=== PATIENT | male | born 1945 | race Caucasian/White ===

== ENCOUNTER → 2018-04-23 10:45 | Outpatient (CLI) | payer OTHER, MEDICARE, SELFPAY ==
--- NOTE | 2018-04-23 | DI.US.S_ITS ---
PROCEDURE: US ABD AORTA ANEURYSM SCREEN INDICATIONS: SCREENING FOR ABDOMINAL AORTIC ANEURYSM TECHNIQUE: Real time scanning was performed of the aorta and iliac arteries, with image documentation. COMPARISON: None. FINDINGS: Aorta: Proximal aortic diameter measures 2 cm. Mid-aorta measures 2 cm. Distal aortic diameter is 1.6 cm. Iliac arteries: Right common iliac artery measures 1.2 cm. Left common iliac artery measures 1 cm. IMPRESSION: Negative for aneurysm. Dictated by: Andrea Canseco M.D. on 04/23/2018 at 10:24 Approved by: Andrea Canseco M.D. on 04/23/2018 at 10:25
== END ==
PROVIDERS: PCP Family Medicine; Visit Provider Family Medicine
DX: Z13.6 Encounter for screening for cardiovascular disorders (principal)
CPT/HCPCS: 76706

== ENCOUNTER 2018-06-26 17:53 | Emergency (ER) | payer MEDICARE, SELFPAY ==
[2018-06-26 17:56] VITALS: BP 111/68; PULSE 65; RESP 15; TEMP 36.1; O2SAT 99; BMI 22.8
--- NOTE | 2018-06-26 18:09 | DI.CT.S_ITS ---
PROCEDURE: CT HEAD/BRAIN WO CON INDICATIONS: possible tia TECHNIQUE: Noncontrast 4.5 mm thick angled axial sections acquired from the foramen magnum to the vertex, with coronal and sagittal reformats. For radiation dose reduction, the following was used: automated exposure control, adjustment of mA and/or kV according to patient size. COMPARISON: None. FINDINGS: Image quality: Excellent. CSF spaces: Basal cisterns are patent. No extra-axial fluid collections. The ventricles are symmetric in size and shape. There is mild cerebral volume loss, with resultant ventricular and sulcal prominence. Brain: No intracranial hemorrhage, mass, or mass effect. There are subcortical, periventricular and deep white matter hypodensities consistent with mild chronic small vessel ischemic changes. There is intracranial internal carotid artery atherosclerosis. Skull and face: Calvarium and visualized facial bones appear intact, without suspicious lesions. Sinuses: Visualized sinuses and mastoids are clear. IMPRESSION: 1. No acute intracranial abnormality. 2. Mild chronic white matter small vessel ischemic changes and cerebral volume loss. Dictated by: Corby Menendez M.D. on 06/26/2018 at 18:36 Approved by: Corby Menendez M.D. on 06/26/2018 at 18:37
[2018-06-26 18:24] LABS: Bacteria Urine None Seen
[2018-06-26 18:30] VITALS: BP 122/62; PULSE 60; RESP 11; O2SAT 99
[2018-06-26 18:34] LABS: Culture Indicated Urine Cult Not Indicated; RBC Urine 0-1/HPF (0-5/HPF); Urine Amphetamines Negative (Negative); Urine Barbiturates Negative (Negative); Urine Benzodiazepines Negative (Negative); Urine Cocaine Negative (Negative); Urine MDMA Negative (Negative); Urine Methadone Negative (Negative); Urine Methamphetamines Negative (Negative); Urine Morphine/Opi cutoff 2000 Negative (Negative); Urine Oxycodone Negative (Negative); Urine Phencyclidine Negative (Negative); Urine Tetrahydrocannabinol Positive (Negative); Urine Tricyclic Antidepressant Negative (Negative); WBC Urine 0-1/HPF (0-5/HPF)
--- NOTE | 2018-06-26 18:48 | PC.NURSE ---
pt with hx of muscle dystrophy, unable to evaluated lower leg drift, limb ataxia.
--- NOTE | 2018-06-26 18:50 | ED.NEUROSD ---
HPI - Neuro Symptoms/Deficit General Chief Complaint: Neuro Symptoms/Deficit Stated Complaint: STATES TIA, SENT FOR CT SCAN Time Seen by Provider: 06/26/18 18:23 Source: patient and family Mode of arrival: ambulatory Limitations: no limitations History of Present Illness HPI Narrative: 72-year-old male, former smoker with complicated medical history presents at the request of his primary care provider for evaluation of a possible TIA. 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 He has had multiple thorough evaluations and as yet no etiology has been determined. He does have family members however with complicated migraines the present similarly. Patient states that yesterday afternoon he had difficulty operating his left hand and had an episode of difficulty expressing words. The symptoms lasted about 15 min and have long since resolved. He denies any recent injury, fever or chills. He denies chest pain, shortness of breath nor nausea, vomiting or diarrhea. Onset (ago): hour(s) Timing confirmed by: spouse Location: speech and left arm History of same: Yes Severity: mild Quality: weak and tingling Relieving factors: none Exacerbating factors: none Context: sudden onset On Anticoagulants: Yes (pradaxa) Associated symptoms: confusion Treatments Prior to Arrival: none Related Data Allergies Allergy/AdvReac Type Severity Reaction Status Date / Time No Known Drug Allergies Allergy Verified 06/26/18 17:56 Review of Systems Constitutional Denies chills, Denies fever(s), Denies lethargy and Reports weakness Eyes Denies change in vision, Denies eye discharge, Denies irritation and Denies loss of vision ENT Ears, Nose, Mouth, and Throat: Denies change in voice, Denies neck pain and Denies sore throat Cardiovascular Denies chest pain, Denies irregular heart rhythm, Denies lightheadedness, Denies palpitations, Denies dyspnea, Denies dyspnea on exertion and Denies orthopnea Respiratory Denies cough, Denies dyspnea, Denies dyspnea on exertion and Denies wheezing Gastrointestinal Gastrointestinal: Denies abdominal pain, Denies change in bowel habits, Denies diarrhea, Denies nausea and Denies vomiting Genitourinary Denies hematuria, Denies flank pain, Denies urinary incontinence and Denies urinary urgency Musculoskeletal Denies neck pain and Reports tingling Integumentary/Breasts Denies pruritus, Denies erythema, Denies rash and Denies wounds Neurologic Reports confusion, Denies loss of vision, Reports tingling and Reports weakness Psychiatric Denies anxiety, Reports confusion, Denies depression, Denies homicidal ideation and Denies suicidal ideation Endocrine Denies palpitations Hematologic/Lymphatic Denies easy bruising Allergic/Immunologic Denies wheezing [facility] Medical History Factor V Leiden (Acute) Migraine (Acute) Oculopharyngeal muscular dystrophy (Acute) TIA (transient ischemic attack) (Acute) Social History Smoking Status: Smoker, status unknown Social History Smoking Status: Smoker, status unknown Exam Narrative Exam Narrative: GENERAL: This is a well-nourished, well-developed patient, in mild distress. HEAD: Atraumatic. Normocephalic. No temporal or scalp tenderness. EYES: Pupils equal round and reactive. Extraocular motions intact. No scleral icterus. No injection or drainage. ENT: Nose without bleeding, purulent drainage or septal hematoma. Throat without erythema, tonsillar hypertrophy or exudate. Uvula midline. Airway patent. NECK: Trachea midline. No JVD or lymphadenopathy. Supple, nontender, no meningeal signs. CARDIOVASCULAR: Regular rate and rhythm without murmurs, gallops, or rubs. RESPIRATORY: Clear to auscultation. Breath sounds equal bilaterally. No wheezes, rales, or rhonchi. GASTROINTESTINAL: Abdomen soft, non-tender, nondistended. No hepato-splenomegaly, or palpable masses. No guarding. EXTREMITIES: No clubbing, cyanosis, or edema. No joint tenderness, effusion, or edema noted. BACK: Nontender without deformity or crepitance. No flank tenderness. NEURO: AOx3. SKIN: No rash or erythema. NIH Stroke Scale 1a. LOC: Patient is alert and keenly responsive (0) 1b. LOC Questions: Patient answers both LOC questions accurately (0) 1c. LOC Commands: Patient performs both tasks correctly (0) 2. Best Gaze: Normal (0) 3. Visual: No visual loss (0) 4. Facial palsy: Normal symmetrical movements (0) 5. Motor arm: No drift (0) 6. Motor leg: No drift (0) 7. Limb ataxia: Absent (0) 8. Sensory: Normal (0) 9. Best language: No aphasia; normal (0) 10. Dysarthria: Normal (0) 11. Extinction and inattention: No abnormality (0) NIHSS: 0 Initial Vital Signs Initial Vital Signs: Vital Signs Temperature 97.0 F L 06/26/18 17:56 Pulse Rate 65 06/26/18 17:56 Respiratory Rate 15 06/26/18 17:56 Blood Pressure 111/68 06/26/18 17:56 Pulse Oximetry 99 06/26/18 17:56 Scores ABCD2 Age >= 60 years: yes Initial BP. Either SBP >= 140 or DBP >= 90.: no Clinical features of the TIA: unilateral weakness Duration of symptoms: 10-59 minutes History of diabetes: no ABCD2 Score: 4 Course Orders Ordered: Discontinued Medications Sodium Chloride (Normal Saline 0.9%) 1,000 mls @ 150 mls/hr IV CONT KAYLYNN Last Admin: 06/26/18 18:56 Dose: 150 mls/hr Consultations Consultation #1: Discussion with [place] stroke neurologist. I relayed patient complaints and physical exam as well as CT and lab findings. She was able to access some records from a visit when he was sent to [place] for likely [place] filter placement in the setting of a PE. In discussing the case she stairs the opinion that the patient will require neurology evaluation but that nothing further needs to be done here in the emergency department such as CT angiogram or MRI. She sure the opinion that an alternative diagnosis such as atypical migraine or partial seizure given the lack of ischemic findings on multiple prior stroke evaluations. Vital Signs - 8 hr 06/26/18 17:56 06/26/18 18:30 06/26/18 19:02 Temperature 97.0 F L Pulse Rate 65 60 59 L Respiratory Rate 15 11 L 16 Blood Pressure 111/68 Blood Pressure [Left Arm] 122/62 130/65 Pulse Oximetry 99 99 95 MDM - Neuro Symptoms/Deficit Medical Records Attestation: I reviewed the patient's medical records. Lab Data Attestation: I reviewed the patient's lab results. Result diagrams: 06/26/18 18:43 06/26/18 18:43 Lab Results 06/26/18 06/26/18 06/26/18 Range/Units 18:20 18:20 18:43 WBC 6.6 (4.5-11.0) X10^3/uL RBC 4.78 (4.5-5.9) X10^6/uL Hgb 15.7 (13.5-17.5) g/dL Hct 46.8 (41-53) % MCV 97.8 (80-100) fL MCH 32.9 (26-34) PG MCHC 33.6 (30-36) % RDW 12.8 (11.6-14.8) % Plt Count 170 (150-400) X10^3/uL Neut % (Auto) 68.5 (50-75) % Lymph % (Auto) 19.4 L (25-40) % Hale % (Auto) 9.3 (3-14) % Eos % (Auto) 1.8 L (2-4) % Baso % (Auto) 1.0 (0-2) % Neut # (Auto) 4500 (2289-0604) /uL Lymph # (Auto) 1300 (8794-8633) /uL Hale # (Auto) 600 (0-900) /uL Eos # (Auto) 100 (0-450) /uL Baso # (Auto) 100 (0-100) /uL PT (10.1-12.7) SECONDS INR (0.9-1.3) APTT (26.4-36.2) SECONDS Sodium (137-145) mmol/L Potassium (3.4-5.1) mmol/L Chloride (98-107) mmol/L Carbon Dioxide (22-32) mmol/L BUN (9-20) mg/dL Creatinine (0.66-1.25) mg/dL Estimated GFR (>60) mL/min BUN/Creatinine Ratio (6-22) Glucose (80-110) mg/dL Calcium (8.4-10.2) mg/dL Urine Color Cancelled Urine Appearance Cancelled Urine pH Cancelled Ur Specific [place] Cancelled Urine Protein Cancelled Urine Glucose (UA) Cancelled Urine Ketones Cancelled Urine Occult Blood Cancelled Urine Nitrate Cancelled Urine Bilirubin Cancelled Urine Urobilinogen Cancelled Ur Leukocyte Esterase Cancelled Urine RBC 0-1/hpf (0-5/HPF) Urine WBC 0-1/hpf (0-5/HPF) Urine Bacteria None seen (None) Ur Culture Indicated? Cult not indicated Urine Opiates Screen Negative (Negative) Ur Oxycodone Screen Negative (Negative) Urine Methadone Screen Negative (Negative) Ur Barbiturates Screen Negative (Negative) U Tricyclic Antidepress Negative (Negative) Ur Phencyclidine Scrn Negative (Negative) Ur Amphetamines Screen Negative (Negative) U Methamphetamines Scrn Negative (Negative) Ur MDMA Scrn (Ecstasy) Negative (Negative) U Benzodiazepines Scrn Negative (Negative) Urine Cocaine Screen Negative (Negative) U Marijuana (THC) Screen Positive H (Negative) 06/26/18 06/26/18 Range/Units 18:43 18:43 WBC (4.5-11.0) X10^3/uL RBC (4.5-5.9) X10^6/uL Hgb (13.5-17.5) g/dL Hct (41-53) % MCV (80-100) fL MCH (26-34) PG MCHC (30-36) % RDW (11.6-14.8) % Plt Count (150-400) X10^3/uL Neut % (Auto) (50-75) % Lymph % (Auto) (25-40) % Hale % (Auto) (3-14) % Eos % (Auto) (2-4) % Baso % (Auto) (0-2) % Neut # (Auto) (5982-0004) /uL Lymph # (Auto) (0597-2670) /uL Hale # (Auto) (0-900) /uL Eos # (Auto) (0-450) /uL Baso # (Auto) (0-100) /uL PT 12.5 (10.1-12.7) SECONDS INR 1.1 (0.9-1.3) APTT 38 H (26.4-36.2) SECONDS Sodium 140 (137-145) mmol/L Potassium 4.6 (3.4-5.1) mmol/L Chloride 104 (98-107) mmol/L Carbon Dioxide 26 (22-32) mmol/L BUN 10 (9-20) mg/dL Creatinine 0.50 L (0.66-1.25) mg/dL Estimated GFR > 60.0 (>60) mL/min BUN/Creatinine Ratio 20.0 (6-22) Glucose 127 H (80-110) mg/dL Calcium 9.0 (8.4-10.2) mg/dL Urine Color Urine Appearance Urine pH Ur Specific [place] Urine Protein Urine Glucose (UA) Urine Ketones Urine Occult Blood Urine Nitrate Urine Bilirubin Urine Urobilinogen Ur Leukocyte Esterase Urine RBC (0-5/HPF) Urine WBC (0-5/HPF) Urine Bacteria (None) Ur Culture Indicated? Urine Opiates Screen (Negative) Ur Oxycodone Screen (Negative) Urine Methadone Screen (Negative) Ur Barbiturates Screen (Negative) U Tricyclic Antidepress (Negative) Ur Phencyclidine Scrn (Negative) Ur Amphetamines Screen (Negative) U Methamphetamines Scrn (Negative) Ur MDMA Scrn (Ecstasy) (Negative) U Benzodiazepines Scrn (Negative) Urine Cocaine Screen (Negative) U Marijuana (THC) Screen (Negative) Urine Dip Bedside Urine Glucose Negative Bedside Urine Bilirubin - Negative Bedside Urine Ketone - Negative Urine Specific Amory 1.020 Bedside Urine Occult Blood - Negative Bedside Urine pH 6.0 Bedside Urine Protein +/- 15 Bedside Urine Urobilinogen - Negative Bedside Urine Nitrite - Negative Bedside Urine Leukocytes - Negative Esterase Imaging Data CT scan - head: Radiologist's impression: [place] [id number] CT Scan Report Signed Patient: Javi Ventura TMR#: [id number] : [id number]:[id number] Age/Sex: 72 / MDate of Service: 06/26/18 Loc: ED Accession Number: [id number] Procedure: CT head/brain wo con Ordering Provider: Stephen Alexander D.O. PROCEDURE: CT HEAD/BRAIN WO CON INDICATIONS: possible tia TECHNIQUE: Noncontrast 4.5 mm thick angled axial sections acquired from the foramen magnum to the vertex, with coronal and sagittal reformats. For radiation dose reduction, the following was used: automated exposure control, adjustment of mA and/or kV according to patient size. COMPARISON: None. FINDINGS: Image quality: Excellent. CSF spaces: Basal cisterns are patent. No extra-axial fluid collections. The ventricles are symmetric in size and shape. There is mild cerebral volume loss, with resultant ventricular and sulcal prominence. Brain: No intracranial hemorrhage, mass, or mass effect. There are subcortical, periventricular and deep white matter hypodensities consistent with mild chronic small vessel ischemic changes. There is intracranial internal carotid artery atherosclerosis. Skull and face: Calvarium and visualized facial bones appear intact, without suspicious lesions. Sinuses: Visualized sinuses and mastoids are clear. IMPRESSION: 1. No acute intracranial abnormality. 2. Mild chronic white matter small vessel ischemic changes and cerebral volume loss. Dictated by: Corby Menendez M.D. on 06/26/2018 at 18:36 Approved by: Corby Menendez M.D. on 06/26/2018 at 18:37 [facility] Narrative Medical decision making narrative: Multiple etiologies for patient's symptoms considered including: [Stroke versus TIA versus atypical migraine versus partial seizures] Patient's symptoms improved or duration of stay with above-stated therapies. Findings and discharge diagnosis discussed with patient/family followed by verbalization of understanding Return precautions discussed with patient/family whom verbalize understanding. Discharge Plan Departure Patient Disposition: Home Clinical Impression: Brain TIA Discharge Date/Time: 06/26/18 20:08 Interventions: ED Discharge Assessment Last Done: 06/26/18 20:09 Instructions: DI for Transient Ischemic Attack Activity Restrictions/Additional Instructions: *You have been diagnosed with [ improved neurologic symptoms ] *What to do: *Continue to take medications as directed *Follow up with your primary care provider in 2-3 days, call for an appointment. Let them know you were seen in the Emergency Department and that we ask that you be seen in follow up *Return to ER if you should have any new, worsening or concerning symptoms *[facility] [phone]
[2018-06-26] MEDS: SODIUM CHLORIDE 0.9% 1,000 ML 150 ML IV (18:56)
[2018-06-26 19:02] VITALS: BP 130/65; PULSE 59; RESP 16; O2SAT 95
[2018-06-26 19:03] LABS: Add Manual Diff / Slide Review NO; Basophils Absolute Auto 100 /uL (0-100); Eosinophils Absolute Auto 100 /uL (0-450); Eosinophils Percent Auto 1.8 % (2-4); Hematocrit 46.8 % (41-53); Hemoglobin 15.7 g/dL (13.5-17.5); Lymphocytes Absolute Auto 1300 /uL (1100-4500); Lymphocytes Percent Auto 19.4 % (25-40); Mean Corpuscular HGB Conc 33.6 % (30-36); Mean Corpuscular Hemoglobin 32.9 PG (26-34); Mean Corpuscular Volume 97.8 fL (80-100); Monocytes Absolute Auto 600 /uL (0-900); Monocytes Percent Auto 9.3 % (3-14); Neutrophils Absolute Auto 4500 /uL (1500-7000); Neutrophils Percent Auto 68.5 % (50-75); Platelet Count 170 X10^3/uL (150-400); Red Blood Cell Count 4.78 X10^6/uL (4.5-5.9); Red Cell Distribution Width 12.8 % (11.6-14.8); White Blood Cell Count 6.6 X10^3/uL (4.5-11.0)
[2018-06-26 19:05] LABS: Blood Urea Nitrogen 10 mg/dL (9-20); Carbon Dioxide 26 mmol/L (22-32); Chloride 104 mmol/L (98-107); Estimated Glomerular Filt Rate > 60.0 mL/min (>60); Glucose 127 mg/dL (80-110); Potassium 4.6 mmol/L (3.4-5.1); Sodium 140 mmol/L (137-145)
[2018-06-26 19:07] LABS: HEMOLYSIS 65 (0-50)
[2018-06-26 19:08] LABS: INR 1.1 (0.9-1.3); Prothrombin Time 12.5 SECONDS (10.1-12.7)
[2018-06-26 19:10] LABS: PTT Partial Thromboplastin Tim 38 SECONDS (26.4-36.2)
--- NOTE | 2018-06-26 19:25 | ED_ITS ---
HPI - Neuro Symptoms/Deficit General Chief Complaint: Neuro Symptoms/Deficit Stated Complaint: STATES TIA, SENT FOR CT SCAN Time Seen by Provider: 06/26/18 18:23 Source: patient and family Mode of arrival: ambulatory Limitations: no limitations History of Present Illness HPI Narrative: 72-year-old male, former smoker with complicated medical history presents at the request of his primary care provider for evaluation of a possible TIA. 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 He has had multiple thorough evaluations and as yet no etiology has been determined. He does have family members however with complicated migraines the present similarly. Patient states that yesterday afternoon he had difficulty operating his left hand and had an episode of difficulty expressing words. The symptoms lasted about 15 min and have long since resolved. He denies any recent injury, fever or chills. He denies chest pain, shortness of breath nor nausea, vomiting or diarrhea. Onset (ago): hour(s) Timing confirmed by: spouse Location: speech and left arm History of same: Yes Severity: mild Quality: weak and tingling Relieving factors: none Exacerbating factors: none Context: sudden onset On Anticoagulants: Yes (pradaxa) Associated symptoms: confusion Treatments Prior to Arrival: none Related Data Allergies Allergy/AdvReac Type Severity Reaction Status Date / Time No Known Drug Allergies Allergy Verified 06/26/18 17:56 Review of Systems Constitutional Denies chills, Denies fever(s), Denies lethargy and Reports weakness Eyes Denies change in vision, Denies eye discharge, Denies irritation and Denies loss of vision ENT Ears, Nose, Mouth, and Throat: Denies change in voice, Denies neck pain and Denies sore throat Cardiovascular Denies chest pain, Denies irregular heart rhythm, Denies lightheadedness, Denies palpitations, Denies dyspnea, Denies dyspnea on exertion and Denies orthopnea Respiratory Denies cough, Denies dyspnea, Denies dyspnea on exertion and Denies wheezing Gastrointestinal Gastrointestinal: Denies abdominal pain, Denies change in bowel habits, Denies diarrhea, Denies nausea and Denies vomiting Genitourinary Denies hematuria, Denies flank pain, Denies urinary incontinence and Denies urinary urgency Musculoskeletal Denies neck pain and Reports tingling Integumentary/Breasts Denies pruritus, Denies erythema, Denies rash and Denies wounds Neurologic Reports confusion, Denies loss of vision, Reports tingling and Reports weakness Psychiatric Denies anxiety, Reports confusion, Denies depression, Denies homicidal ideation and Denies suicidal ideation Endocrine Denies palpitations Hematologic/Lymphatic Denies easy bruising Allergic/Immunologic Denies wheezing [facility] Medical History Factor V Leiden (Acute) Migraine (Acute) Oculopharyngeal muscular dystrophy (Acute) TIA (transient ischemic attack) (Acute) Social History Smoking Status: Smoker, status unknown Social History Smoking Status: Smoker, status unknown Exam Narrative Exam Narrative: GENERAL: This is a well-nourished, well-developed patient, in mild distress. HEAD: Atraumatic. Normocephalic. No temporal or scalp tenderness. EYES: Pupils equal round and reactive. Extraocular motions intact. No scleral icterus. No injection or drainage. ENT: Nose without bleeding, purulent drainage or septal hematoma. Throat without erythema, tonsillar hypertrophy or exudate. Uvula midline. Airway patent. NECK: Trachea midline. No JVD or lymphadenopathy. Supple, nontender, no meningeal signs. CARDIOVASCULAR: Regular rate and rhythm without murmurs, gallops, or rubs. RESPIRATORY: Clear to auscultation. Breath sounds equal bilaterally. No wheezes , rales, or rhonchi. GASTROINTESTINAL: Abdomen soft, non-tender, nondistended. No hepato-splenomegaly , or palpable masses. No guarding. EXTREMITIES: No clubbing, cyanosis, or edema. No joint tenderness, effusion, or edema noted. BACK: Nontender without deformity or crepitance. No flank tenderness. NEURO: AOx3. SKIN: No rash or erythema. NIH Stroke Scale 1a. LOC: Patient is alert and keenly responsive (0) 1b. LOC Questions: Patient answers both LOC questions accurately (0) 1c. LOC Commands: Patient performs both tasks correctly (0) 2. Best Gaze: Normal (0) 3. Visual: No visual loss (0) 4. Facial palsy: Normal symmetrical movements (0) 5. Motor arm: No drift (0) 6. Motor leg: No drift (0) 7. Limb ataxia: Absent (0) 8. Sensory: Normal (0) 9. Best language: No aphasia; normal (0) 10. Dysarthria: Normal (0) 11. Extinction and inattention: No abnormality (0) NIHSS: 0 Initial Vital Signs Initial Vital Signs: Vital Signs Temperature 97.0 F L 06/26/18 17:56 Pulse Rate 65 06/26/18 17:56 Respiratory Rate 15 06/26/18 17:56 Blood Pressure 111/68 06/26/18 17:56 Pulse Oximetry 99 06/26/18 17:56 Scores ABCD2 Age >= 60 years: yes Initial BP. Either SBP >= 140 or DBP >= 90.: no Clinical features of the TIA: unilateral weakness Duration of symptoms: 10-59 minutes History of diabetes: no ABCD2 Score: 4 Course Orders Ordered: Discontinued Medications Sodium Chloride (Normal Saline 0.9%) 1,000 mls @ 150 mls/hr IV CONT KAYLYNN Last Admin: 06/26/18 18:56 Dose: 150 mls/hr Consultations Consultation #1: Discussion with [place] stroke neurologist. I relayed patient complaints and physical exam as well as CT and lab findings. She was able to access some records from a visit when he was sent to [place] for likely Khurram filter placement in the setting of a PE. In discussing the case she stairs the opinion that the patient will require neurology evaluation but that nothing further needs to be done here in the emergency department such as CT angiogram or MRI. She sure the opinion that an alternative diagnosis such as atypical migraine or partial seizure given the lack of ischemic findings on multiple prior stroke evaluations. Vital Signs - 8 hr 06/26/18 17:56 06/26/18 18:30 06/26/18 19:02 Temperature 97.0 F L Pulse Rate 65 60 59 L Respiratory Rate 15 11 L 16 Blood Pressure 111/68 Blood Pressure [Left Arm] 122/62 130/65 Pulse Oximetry 99 99 95 MDM - Neuro Symptoms/Deficit Medical Records Attestation: I reviewed the patient's medical records. Lab Data Attestation: I reviewed the patient's lab results. Result diagrams: 06/26/18 18:43 06/26/18 18:43 Lab Results 06/26/18 06/26/18 06/26/18 Range/Units 18:20 18:20 18:43 WBC 6.6 (4.5-11.0) X10^3/uL RBC 4.78 (4.5-5.9) X10^6/uL Hgb 15.7 (13.5-17.5) g/dL Hct 46.8 (41-53) % MCV 97.8 (80-100) fL MCH 32.9 (26-34) PG MCHC 33.6 (30-36) % RDW 12.8 (11.6-14.8) % Plt Count 170 (150-400) X10^3/uL Neut % (Auto) 68.5 (50-75) % Lymph % (Auto) 19.4 L (25-40) % [place] % (Auto) 9.3 (3-14) % Eos % (Auto) 1.8 L (2-4) % Baso % (Auto) 1.0 (0-2) % Neut # (Auto) 4500 (1543-5713) /uL Lymph # (Auto) 1300 (3375-0896) /uL [place] # (Auto) 600 (0-900) /uL Eos # (Auto) 100 (0-450) /uL Baso # (Auto) 100 (0-100) /uL PT (10.1-12.7) SECONDS INR (0.9-1.3) APTT (26.4-36.2) SECONDS Sodium (137-145) mmol/L Potassium (3.4-5.1) mmol/L Chloride (98-107) mmol/L Carbon Dioxide (22-32) mmol/L BUN (9-20) mg/dL Creatinine (0.66-1.25) mg/dL Estimated GFR (>60) mL/min BUN/Creatinine Ratio (6-22) Glucose (80-110) mg/dL Calcium (8.4-10.2) mg/dL Urine Color Cancelled Urine Appearance Cancelled Urine pH Cancelled Ur Specific [place] Cancelled Urine Protein Cancelled Urine Glucose (UA) Cancelled Urine Ketones Cancelled Urine Occult Blood Cancelled Urine Nitrate Cancelled Urine Bilirubin Cancelled Urine Urobilinogen Cancelled Ur Leukocyte Esterase Cancelled Urine RBC 0-1/hpf (0-5/HPF) Urine WBC 0-1/hpf (0-5/HPF) Urine Bacteria None seen (None) Ur Culture Indicated? Cult not indicated Urine Opiates Screen Negative (Negative) Ur Oxycodone Screen Negative (Negative) Urine Methadone Screen Negative (Negative) Ur Barbiturates Screen Negative (Negative) U Tricyclic Antidepress Negative (Negative) Ur Phencyclidine Scrn Negative (Negative) Ur Amphetamines Screen Negative (Negative) U Methamphetamines Scrn Negative (Negative) Ur MDMA Scrn (Ecstasy) Negative (Negative) U Benzodiazepines Scrn Negative (Negative) Urine Cocaine Screen Negative (Negative) U Marijuana (THC) Screen Positive H (Negative) 06/26/18 06/26/18 Range/Units 18:43 18:43 WBC (4.5-11.0) X10^3/uL RBC (4.5-5.9) X10^6/uL Hgb (13.5-17.5) g/dL Hct (41-53) % MCV (80-100) fL MCH (26-34) PG MCHC (30-36) % RDW (11.6-14.8) % Plt Count (150-400) X10^3/uL Neut % (Auto) (50-75) % Lymph % (Auto) (25-40) % [place] % (Auto) (3-14) % Eos % (Auto) (2-4) % Baso % (Auto) (0-2) % Neut # (Auto) (0953-5222) /uL Lymph # (Auto) (7044-6060) /uL [place] # (Auto) (0-900) /uL Eos # (Auto) (0-450) /uL Baso # (Auto) (0-100) /uL PT 12.5 (10.1-12.7) SECONDS INR 1.1 (0.9-1.3) APTT 38 H (26.4-36.2) SECONDS Sodium 140 (137-145) mmol/L Potassium 4.6 (3.4-5.1) mmol/L Chloride 104 (98-107) mmol/L Carbon Dioxide 26 (22-32) mmol/L BUN 10 (9-20) mg/dL Creatinine 0.50 L (0.66-1.25) mg/dL Estimated GFR > 60.0 (>60) mL/min BUN/Creatinine Ratio 20.0 (6-22) Glucose 127 H (80-110) mg/dL Calcium 9.0 (8.4-10.2) mg/dL Urine Color Urine Appearance Urine pH Ur Specific [place] Urine Protein Urine Glucose (UA) Urine Ketones Urine Occult Blood Urine Nitrate Urine Bilirubin Urine Urobilinogen Ur Leukocyte Esterase Urine RBC (0-5/HPF) Urine WBC (0-5/HPF) Urine Bacteria (None) Ur Culture Indicated? Urine Opiates Screen (Negative) Ur Oxycodone Screen (Negative) Urine Methadone Screen (Negative) Ur Barbiturates Screen (Negative) U Tricyclic Antidepress (Negative) Ur Phencyclidine Scrn (Negative) Ur Amphetamines Screen (Negative) U Methamphetamines Scrn (Negative) Ur MDMA Scrn (Ecstasy) (Negative) U Benzodiazepines Scrn (Negative) Urine Cocaine Screen (Negative) U Marijuana (THC) Screen (Negative) Urine Dip Bedside Urine Glucose Negative Bedside Urine Bilirubin - Negative Bedside Urine Ketone - Negative Urine Specific [place] 1.020 Bedside Urine Occult Blood - Negative Bedside Urine pH 6.0 Bedside Urine Protein +/- 15 Bedside Urine Urobilinogen - Negative Bedside Urine Nitrite - Negative Bedside Urine Leukocytes - Negative Esterase Imaging Data CT scan - head: Radiologist's impression: [place] [address] CT Scan Report Signed Patient: Javi Ventura TMR#: [id number] : 1945cct:[id number] Age/Sex: 72 / MDate of Service: 06/26/18 Loc: ED Accession Number: [id number] Procedure: CT head/brain wo con Ordering Provider: Stephen Alexander D.O. PROCEDURE: CT HEAD/BRAIN WO CON INDICATIONS: possible tia TECHNIQUE: Noncontrast 4.5 mm thick angled axial sections acquired from the foramen magnum to the vertex, with coronal and sagittal reformats. For radiation dose reduction, the following was used: automated exposure control, adjustment of mA and/or kV according to patient size. COMPARISON: None. FINDINGS: Image quality: Excellent. CSF spaces: Basal cisterns are patent. No extra-axial fluid collections. The ventricles are symmetric in size and shape. There is mild cerebral volume loss , with resultant ventricular and sulcal prominence. Brain: No intracranial hemorrhage, mass, or mass effect. There are subcortical , periventricular and deep white matter hypodensities consistent with mild chronic small vessel ischemic changes. There is intracranial internal carotid artery atherosclerosis. Skull and face: Calvarium and visualized facial bones appear intact, without suspicious lesions. Sinuses: Visualized sinuses and mastoids are clear. IMPRESSION: 1. No acute intracranial abnormality. 2. Mild chronic white matter small vessel ischemic changes and cerebral volume loss. Dictated by: Corby Menendez M.D. on 06/26/2018 at 18:36 Approved by: Corby Menendez M.D. on 06/26/2018 at 18:37 [facility] Narrative Medical decision making narrative: Multiple etiologies for patient's symptoms considered including: [Stroke versus TIA versus atypical migraine versus partial seizures] Patient's symptoms improved or duration of stay with above-stated therapies. Findings and discharge diagnosis discussed with patient/family followed by verbalization of understanding Return precautions discussed with patient/family whom verbalize understanding. Discharge Plan Departure Patient Disposition: Home Clinical Impression: Brain TIA Discharge Date/Time: 06/26/18 20:08 Interventions: ED Discharge Assessment Last Done: 06/26/18 20:09 Instructions: DI for Transient Ischemic Attack Activity Restrictions/Additional Instructions: *You have been diagnosed with [ improved neurologic symptoms ] *What to do: *Continue to take medications as directed *Follow up with your primary care provider in 2-3 days, call for an appointment. Let them know you were seen in the Emergency Department and that we ask that you be seen in follow up *Return to ER if you should have any new, worsening or concerning symptoms *[facility] [phone]
[2018-06-26 19:30] VITALS: BP 128/70; PULSE 56; RESP 15; O2SAT 95
--- NOTE | 2018-08-16 11:21 | PC.NURSE ---
late entry: completed NS 1000ml bolus iv at 06/26/18 1930.
== END 2018-06-26 20:08 | disposition home or self-care (01) ==
PROVIDERS: Emergency Provider Emergency Medicine; PCP Family Medicine
DX: G45.9 Transient cerebral ischemic attack, unspecified (principal)
CPT/HCPCS: 36591; 70450; 80048; 80305; 81003; 81015; 85025; 85610; 85730; 93005; 96360; 99283; 99285

== ENCOUNTER → 2020-09-08 08:20 | Outpatient (CLI) | payer MEDICARE, SELFPAY ==
[2020-09-08 19:27] LABS: Add Manual Diff / Slide Review NO; Basophils Absolute Auto 0 /uL (0-100); Basophils Percent Auto 0.3 % (0-2); Eosinophils Absolute Auto 200 /uL (0-450); Eosinophils Percent Auto 3.5 % (2-4); Hematocrit 47.3 % (41-53); Hemoglobin 15.7 g/dL (13.5-17.5); Lymphocytes Absolute Auto 900 /uL (1100-4500); Lymphocytes Percent Auto 18.6 % (25-40); Mean Corpuscular HGB Conc 33.1 % (30-36); Mean Corpuscular Hemoglobin 32.5 PG (26-34); Mean Corpuscular Volume 98.2 fL (80-100); Monocytes Absolute Auto 400 /uL (0-900); Monocytes Percent Auto 7.9 % (3-14); Neutrophils Absolute Auto 3200 /uL (1500-7000); Neutrophils Percent Auto 69.7 % (50-75); Platelet Count 167 X10^3/uL (150-400); Red Blood Cell Count 4.81 X10^6/uL (4.5-5.9); Red Cell Distribution Width 13.7 % (11.6-14.8); White Blood Cell Count 4.6 X10^3/uL (4.5-11.0)
[2020-09-08 19:44] LABS: Alanine Aminotransferase 36 IU/L (<50); Albumin 3.9 g/dL (3.5-5.0); Albumin Globulin Ratio 1.1 (1.0-2.8); Alkaline Phosphatase 62 U/L (38-126); Aspartate Aminotransferase 116 IU/L (17-59); BUN Creatinine Ratio 28.3 (6-22); Bilirubin Total 0.5 mg/dL (0.2-1.3); Blood Urea Nitrogen 17 mg/dL (9-20); Calcium 9.2 mg/dL (8.4-10.2); Carbon Dioxide 31 mmol/L (22-32); Chloride 103 mmol/L (98-107); Cholesterol 210 mg/dL (140-199); Estimated Glomerular Filt Rate > 60.0 mL/min (>60); Globulin 3.4 g/dL (1.7-4.1); Glucose 100 mg/dL (80-110); HDL Cholesterol 49 mg/dL (40-60); HEMOLYSIS 17 (0-50); LDL Cholesterol Calculated 149 mg/dL (<100); Potassium 4.3 mmol/L (3.4-5.1); Sodium 138 mmol/L (137-145); Total Protein 7.3 g/dL (6.3-8.2); Triglycerides 61 mg/dL (35-150)
[2020-09-08 20:13] LABS: Prostate Specific Antigen Scrn 2.33 ng/mL (0.1-4.0)
[2020-09-18 16:07] LABS: Percent Free Testosterone 3.81 % (1.50-4.20); Testosterone Free 34.08 ng/dL (5.00-21.00); Testosterone Total 894.6 ng/dL (264.0-916.0)
== END ==
PROVIDERS: PCP Physician Assistant; Visit Provider Physician Assistant
DX: E29.1 Testicular hypofunction (principal); G71.09 Other specified muscular dystrophies; I26.99 Other pulmonary embolism without acute cor pulmonale; I82.409 Acute embolism and thrombosis of unspecified deep veins of unspecified lower extremity; Z12.5 Encounter for screening for malignant neoplasm of prostate
CPT/HCPCS: 80053; 80061; 84402; 84403; 85025; G0103

== ENCOUNTER → 2020-12-23 11:57 | Outpatient (CLI) | payer MEDICARE, SELFPAY ==
[2020-12-23 20:13] LABS: COVID19 - ORCAS (NP or Nasal) Negative (Negative)
== END ==
PROVIDERS: PCP Physician Assistant; Visit Provider Physician Assistant
DX: Z01.812 Encounter for preprocedural laboratory examination (principal); Z20.822 Contact with and (suspected) exposure to COVID-19
CPT/HCPCS: U0003

== ENCOUNTER → 2021-02-22 10:01 | Outpatient (CLI) | payer MEDICARE, SELFPAY ==
[2021-02-22 19:57] LABS: Cholesterol 262 mg/dL (140-199); HDL Cholesterol 68 mg/dL (40-60); LDL Cholesterol Calculated 174 mg/dL (<100); Triglycerides 102 mg/dL (35-150)
[2021-03-05 07:28] LABS: Percent Free Testosterone 2.87 % (1.50-4.20); Testosterone Free 22.56 ng/dL (5.00-21.00); Testosterone Total 786.1 ng/dL (264.0-916.0)
== END ==
PROVIDERS: PCP Physician Assistant; Visit Provider Physician Assistant
DX: E29.1 Testicular hypofunction (principal); E78.00 Pure hypercholesterolemia, unspecified; Z79.890 Hormone replacement therapy
CPT/HCPCS: 80061; 84402; 84403

== ENCOUNTER → 2021-06-22 08:27 | Outpatient (CLI) | payer MEDICARE, SELFPAY ==
[2021-06-22 19:25] LABS: Cholesterol 252 mg/dL (140-199); HDL Cholesterol 62 mg/dL (40-60); LDL Cholesterol Calculated 173 mg/dL (<100); Triglycerides 85 mg/dL (35-150)
[2021-06-26 15:42] LABS: Testosterone % Fr + Wkly bound 11.6 % (9.0-46.0); Testosterone Fr+Wkly bound 41.1 ng/dL (40.0-250.0); Testosterone, Total 354.6 ng/dL (264.0-916.0)
== END ==
PROVIDERS: PCP Physician Assistant; Visit Provider Physician Assistant
DX: E29.1 Testicular hypofunction (principal); Z79.890 Hormone replacement therapy
CPT/HCPCS: 80061; 84403

== ENCOUNTER → 2021-10-11 08:30 | Outpatient (CLI) | payer MEDICARE, SELFPAY ==
[2021-10-11 19:32] LABS: Alanine Aminotransferase 48 IU/L (<50); Albumin 4.4 g/dL (3.5-5.0); Albumin Globulin Ratio 1.3 (1.0-2.8); Alkaline Phosphatase 69 U/L (38-126); Aspartate Aminotransferase 55 IU/L (17-59); BUN Creatinine Ratio 28.1 (6-22); Bilirubin Total 0.4 mg/dL (0.2-1.3); Blood Urea Nitrogen 16 mg/dL (9-20); Calcium 9.3 mg/dL (8.4-10.2); Carbon Dioxide 26 mmol/L (22-32); Chloride 106 mmol/L (98-107); Cholesterol 278 mg/dL (140-199); Estimated Glomerular Filt Rate > 60 mL/min (>60); Globulin 3.3 g/dL (1.7-4.1); Glucose 101 mg/dL (80-110); HDL Cholesterol 71 mg/dL (40-60); HEMOLYSIS < 15 (0-50); LDL Cholesterol Calculated 191 mg/dL (<100); Potassium 4.2 mmol/L (3.4-5.1); Sodium 140 mmol/L (137-145); Total Protein 7.7 g/dL (6.3-8.2); Triglycerides 79 mg/dL (35-150)
[2021-10-11 20:00] LABS: Prostate Specific Antigen Scrn 2.27 ng/mL (0.1-4.0)
[2021-10-18 08:18] LABS: Testosterone % Fr + Wkly bound 6.3 % (9.0-46.0); Testosterone Fr+Wkly bound 23.6 ng/dL (40.0-250.0); Testosterone, Total 375.3 ng/dL (264.0-916.0)
== END ==
PROVIDERS: PCP Physician Assistant; Visit Provider Physician Assistant
DX: Z12.5 Encounter for screening for malignant neoplasm of prostate (principal); E78.00 Pure hypercholesterolemia, unspecified; Z79.899 Other long term (current) drug therapy; E29.1 Testicular hypofunction; Z79.890 Hormone replacement therapy
CPT/HCPCS: 80053; 80061; 84403; G0103

== ENCOUNTER → 2022-06-02 12:55 | Outpatient (CLI) | payer MEDICARE, SELFPAY ==
--- NOTE | 2022-06-02 12:57 | DI.RAD.S_ITS ---
PROCEDURE: FL BARIUM SWALLOW INDICATIONS: Dysphagia, pharyngeal phase COMPARISON: None. FINDINGS: Function: There is abnormal esophageal peristalsis with several episodes tertiary contractions resulting in delayed and retrograde flow ingested contrast. There also appears to be occasional episodes of esophageal dysmotility resulting in stasis ingested oral contrast requiring multiple attempts to clear oral contrast. No elicited gastroesophageal reflux. There is normal transit of a calibrated barium tablet through the esophagus into the stomach. Morphology: Air-contrast images demonstrate unremarkable mucosal morphology. Single contrast views show no esophageal strictures, extrinsic mass effects, or diverticula. Limited images of the stomach demonstrate normal appearance. IMPRESSION: Abnormal esophageal peristalsis with several episodes of tertiary contractions as well as multiple episodes of esophageal dysmotility. Mild distal esophageal narrowing appeared transient with no difficulties passing calibrated barium tablet. Dictated by: Emil Varela M.D. on 06/02/2022 at 21:38 Approved by: Emil Varela M.D. on 06/02/2022 at 21:42
== END ==
PROVIDERS: PCP Physician Assistant; Referring Provider Otolaryngology; Visit Provider Otolaryngology
DX: R13.13 Dysphagia, pharyngeal phase (principal); K22.4 Dyskinesia of esophagus; R39.9 Unspecified symptoms and signs involving the genitourinary system; R35.0 Frequency of micturition; E29.1 Testicular hypofunction; Z79.01 Long term (current) use of anticoagulants
CPT/HCPCS: 51798; 74220; 81002; 99214

== ENCOUNTER → 2022-07-18 08:51 | Outpatient (CLI) | payer MEDICARE, SELFPAY ==
[2022-07-18 19:57] LABS: Add Manual Diff / Slide Review NO; Basophils Absolute Auto 0 /uL (0-100); Basophils Percent Auto 0.4 % (0-2); Eosinophils Absolute Auto 200 /uL (0-450); Hematocrit 42.5 % (41-53); Lymphocytes Absolute Auto 800 /uL (1100-4500); Lymphocytes Percent Auto 13.5 % (25-40); Mean Corpuscular Hemoglobin 31.7 PG (26-34); Mean Corpuscular Volume 96.1 fL (80-100); Monocytes Absolute Auto 400 /uL (0-900); Monocytes Percent Auto 6.4 % (3-14); Neutrophils Absolute Auto 4700 /uL (1500-7000); Neutrophils Percent Auto 76.7 % (50-75); Platelet Count 186 X10^3/uL (150-400); Red Blood Cell Count 4.42 X10^6/uL (4.5-5.9); Red Cell Distribution Width 13.5 % (11.6-14.8); White Blood Cell Count 6.2 X10^3/uL (4.5-11.0)
[2022-07-18 20:12] LABS: Alanine Aminotransferase 42 IU/L (<50); Albumin 4.1 g/dL (3.5-5.0); Albumin Globulin Ratio 1.4 (1.0-2.8); Alkaline Phosphatase 72 U/L (38-126); Aspartate Aminotransferase 46 IU/L (17-59); BUN Creatinine Ratio 28.3 (6-22); Bilirubin Total 0.6 mg/dL (0.2-1.3); Blood Urea Nitrogen 15 mg/dL (9-20); Calcium 8.8 mg/dL (8.4-10.2); Carbon Dioxide 26 mmol/L (22-32); Chloride 103 mmol/L (98-107); Cholesterol 245 mg/dL (140-199); Estimated Glomerular Filt Rate > 60 mL/min (>60); Glucose 89 mg/dL (80-110); HDL Cholesterol 65 mg/dL (40-60); HEMOLYSIS < 15 (0-50); LDL Cholesterol Calculated 167 mg/dL (<100); Sodium 139 mmol/L (137-145); Total Protein 7.1 g/dL (6.3-8.2); Triglycerides 67 mg/dL (35-150)
[2022-07-18 21:00] LABS: Hep C Virus Ab w/Reflex Quant NEGATIVE s/c (NEGATIVE)
[2022-07-20 10:50] LABS: Prostate Specific Antigen Scrn 2.43 ng/mL (0.1-4.0)
[2022-07-28 10:58] LABS: Percent Free Testosterone 0.99 % (1.50-4.20); Testosterone Free 4.15 ng/dL (5.00-21.00); Testosterone Total 419.3 ng/dL (264.0-916.0)
== END ==
PROVIDERS: PCP Physician Assistant; Visit Provider Physician Assistant
DX: Z79.899 Other long term (current) drug therapy (principal); E78.00 Pure hypercholesterolemia, unspecified; Z12.5 Encounter for screening for malignant neoplasm of prostate; Z11.59 Encounter for screening for other viral diseases; E29.1 Testicular hypofunction; Z79.890 Hormone replacement therapy
CPT/HCPCS: 80053; 80061; 84402; 84403; 85025; 86803; G0103

== ENCOUNTER → 2022-07-26 14:08 | Outpatient (CLI) | payer MEDICARE, SELFPAY ==
[2022-07-29 13:58] LABS: Fecal Immunochemical Test Negative (Negative)
== END ==
PROVIDERS: PCP Physician Assistant; Visit Provider Physician Assistant
DX: Z12.11 Encounter for screening for malignant neoplasm of colon (principal)
CPT/HCPCS: 82274

== ENCOUNTER → 2023-01-18 09:58 | Outpatient (CLI) | payer MEDICARE, SELFPAY ==
[2023-01-18 20:08] LABS: Alanine Aminotransferase 43 IU/L (<50); Albumin 4.3 g/dL (3.5-5.0); Albumin Globulin Ratio 1.3 (1.0-2.8); Alkaline Phosphatase 70 U/L (38-126); Aspartate Aminotransferase 60 IU/L (17-59); BUN Creatinine Ratio 27.5 (6-22); Bilirubin Total 0.7 mg/dL (0.2-1.3); Blood Urea Nitrogen 14 mg/dL (9-20); Calcium 9.3 mg/dL (8.4-10.2); Carbon Dioxide 23 mmol/L (22-32); Chloride 103 mmol/L (98-107); Estimated Glomerular Filt Rate > 60 mL/min (>60); Globulin 3.3 g/dL (1.7-4.1); Glucose 107 mg/dL (80-110); HEMOLYSIS 36 (0-50); Potassium 4.2 mmol/L (3.4-5.1); Sodium 138 mmol/L (137-145); Total Protein 7.6 g/dL (6.3-8.2)
[2023-01-18 20:09] LABS: Hemoglobin 15.3 g/dL (13.5-17.5); Mean Corpuscular Hemoglobin 32.5 PG (26-34); Mean Corpuscular Volume 95.6 fL (80-100); Platelet Count 174 X10^3/uL (150-400); Red Blood Cell Count 4.71 X10^6/uL (4.5-5.9); Red Cell Distribution Width 13.9 % (11.6-14.8); White Blood Cell Count 8.1 X10^3/uL (4.5-11.0)
[2023-01-18 20:19] LABS: Add Manual Diff / Slide Review YES
[2023-01-18 21:21] LABS: Neutrophils Absolute Manual 6885 /uL (3000-5900); RBC Morphology Normal Morphology; Total Cells Counted 100; Toxic Granulation Present
[2023-01-25 09:09] LABS: Percent Free Testosterone 2.38 % (1.50-4.20); Testosterone Free 11.87 ng/dL (5.00-21.00); Testosterone Total 498.6 ng/dL (264.0-916.0)
== END ==
PROVIDERS: PCP Physician Assistant; Visit Provider Physician Assistant
DX: R35.0 Frequency of micturition (principal); G71.00 Muscular dystrophy, unspecified; E29.1 Testicular hypofunction; Z51.81 Encounter for therapeutic drug level monitoring; Z79.890 Hormone replacement therapy; Z79.899 Other long term (current) drug therapy
CPT/HCPCS: 80053; 84153; 84402; 84403; 85007; 85025

== ENCOUNTER → 2023-06-21 13:38 | Outpatient (CLI) | payer MEDICARE, SELFPAY ==
--- NOTE | 2023-06-21 13:40 | DI.ECHO.S_ITS ---
[facility]---------+ [facility] +---------+ : : [address] : : : : [id number] : : : : Phone: [phone] Echocardiogram Report + :Name: TIERNEY DAVEY Study Date: 06/21/2023 Height: 68 in : :[facility] ReadingLocation: Weight: 150 lb : : Gender: Male BSA: 1.8 m2 : :: 1945 Age: 77 yrs BP: 141/63 mmHg: :Reason For Study: MURMUR : :Ordering Physician: PATRICE, : :ELISE Performed By: Parker Torres : :Referring: ELISE IBRAHIM : + Interpretation Summary There is moderate concentric left ventricular hypertrophy. The ejection fraction is estimated to be 60-65%. Diastolic function could not be accurately assessed due to contradictory data. The left atrium is moderately dilated. The right ventricle is moderately dilated. The right ventricular systolic function is normal. The right atrium is mildly dilated. There is severe aortic stenosis. There is moderate aortic regurgitation. Pulmonary artery pressures cannot be estimated because of the lack of a measurable TR jet velocity but the IVC suggests a CVP of around 3 mmHg. Compared to the prior study dated 07/09/2014, the aortic sclerosis has now progressed to severe stenosis and the aortic regurgitation is increased. Procedure: A two-dimensional transthoracic echocardiogram with color flow and Doppler was performed. The study quality was technically adequate. Comparison is made with the echocardiogram of 07/09/14. The patient was in normal sinus rhythm during the exam. The heart rate ranged between 61-71 bpm during the study. Left Ventricle: The left ventricle is normal in size. Proximal septal thickening is noted. There is moderate concentric left ventricular hypertrophy. The ejection fraction is estimated to be 60-65%. Diastolic function could not be accurately assessed due to contradictory data. Right Ventricle: The right ventricle is moderately dilated. The right ventricular systolic function is normal. Atria: The left atrium is moderately dilated. The right atrium is mildly dilated. The interatrial septum grossly appears intact with no obvious evidence for an atrial septal defect. Mitral Valve: The mitral valve is normal in structure and function. There is mild mitral annular calcification. There is trace mitral regurgitation. Aortic Valve: The aortic valve is trileaflet. The aortic valve is severely calcified. There is severe aortic stenosis. The aortic valve mean gradient is 39 mmHg. The peak aortic velocity is 4.1 m/sec. The calculated aortic valve area is 0.99 cm2. There is moderate aortic regurgitation. Tricuspid Valve: The tricuspid valve is normal in structure and function. There is trace tricuspid regurgitation. Pulmonary artery pressures cannot be estimated because of the lack of a measurable TR jet velocity but the IVC suggests a CVP of around 3 mmHg. Pulmonic Valve: The pulmonic valve is not well visualized. There is a trace or physiologic amount of pulmonic regurgitation. Great Vessels: The aortic root is normal size. The dimensions of the ascending aorta are normal. The inferior vena cava appeared normal. The IVC is of normal diameter and collapses greater than 50% with a sniff. This suggests a low right atrial pressure of 3 mm Hg. Pericardium/ Pleura There is no pericardial effusion. There is no pleural effusion. MMode/2D Measurements & Calculations LVIDd: 4.5 cm LVOT diam: 2.1 cm LVIDs: 2.8 cm Ao root diam: 3.2 cm FS: 36.3 % asc Aorta Diam: 3.8 cm IVSd: 1.5 cm Ao Arch Diam (Prox Trans): 3.1 cm LVPWd: 1.1 cm LV mckenzie. diameter/BSA (cm/m^2): 2.5 LV sys. diameter/BSA (cm/m^2): 1.6 LA A2 area: 24.5 cm2 RA long axis: 3.8 cm LA A4 area: 19.0 cm2 RA area: 12.2 cm2 LA length (vol): 4.9 cm RA vol: 33.6 ml LA vol: 80.3 ml RA : 18.6 ml/m2 LA vol index: 44.4 ml/m2 IVC diam: 1.8 cm RVD1 (basal): 4.9 cm RVD2 (mid): 4.7 cm TAPSE: 2.8 cm Doppler Measurements & Calculations Ao V2 max: 383.6 cm/sec LVOT Max George: 134.5 cm/sec Ao V2 mean: 288.8 cm/sec LV V1 max P.9 mmHg Ao max P.5 mmHg LV V1 VTI: 26.8 cm Ao mean P.3 mmHg HOANG(I,D): 1.0 cm2 Ao V2 VTI: 93.2 cm HOANG(V,D): 1.2 cm2 sev ratio: 0.29 HOANG indexed to BSA (cm^2/m^2): 0.55 AI P1/2t: 390.8 msec AI dec slope: 309.5 cm/sec2 MV E max george: 85.8 cm/sec TR max george: 278.0 cm/sec MV A max george: 107.2 cm/sec TR max P.9 mmHg MV E/A: 0.80 PA V2 max: 109.8 cm/sec Med Peak E' George: 6.5 cm/sec PA V2 mean: 79.6 cm/sec E/E' med: 13.1 PA mean P.8 mmHg Lat Peak E' George: 9.1 cm/sec PA pr(Accel): 41.3 mmHg E/E' lat: 9.4 E/e' average: 11.2 MV dec time: 0.30 sec SV(LVOT): 93.4 ml Reading Physician:03:33 PM
== END ==
PROVIDERS: PCP Physician Assistant; Referring Provider Hospitalist; Visit Provider Hospitalist
DX: Z01.818 Encounter for other preprocedural examination (principal); I34.81 Nonrheumatic mitral (valve) annulus calcification; I35.2 Nonrheumatic aortic (valve) stenosis with insufficiency; R01.1 Cardiac murmur, unspecified
CPT/HCPCS: 93306

== ENCOUNTER → 2023-10-12 13:21 | Outpatient (CLI) | payer MEDICARE, SELFPAY ==
--- NOTE | 2023-10-12 | DI.ECHO.S_ITS ---
[place] +---------+ [facility] : : [address] : [address] : : [id number] : : Phone: [phone] Echocardiogram Report + + :Name: TIERNEY DAVEY Study Date: 10/12/2023 Height: 68 in : :[facility] ReadingLocation: Weight: 150 lb : : Gender: Male BSA: 1.8 m2 : :: 1945 Age: 78 yrs BP: 139/75 mmHg: :Reason For Study: 6 WEEKS POST TAVR : :Ordering Physician: HUDSON, : :SERGIO Hull Performed By: Parker Torres : :Referring: UNSPECIFIED : + + Interpretation Summary Normal sinus rhythm. Normal LV size; mild LVH; normal wall motion and LV systolic function. EF is 60-65%. Stage I diastolic dysfunction. Moderate LA enlargement; mild RA enlargement and mildly - moderately dilated RV enlargement. Aortic valve is replaced by history via Evolute 29 mm Tavr. It is functioning normally. Peak velocity is 2.5 m/sec; mean gradient 12 mm Hg. Compared to prior study 06/21/2023, tavr is newly deployed. Otherwise no changes have occurred. Procedure: A two-dimensional transthoracic echocardiogram with color flow and Doppler was performed. The study quality was technically adequate. Comparison is made with the echocardiogram of 06/21/2023. The patient was in sinus rhythm with heart rates between 50-81 bpm during the exam. Left Ventricle: The left ventricle is normal in size. Left ventricular wall thickness is mildly increased. The ejection fraction is estimated to be 60- 65%. Right Ventricle: The right ventricle is mild to moderately dilated. The right ventricular systolic function is normal. Atria: The left atrium is moderately dilated. The right atrium is mildly dilated. The interatrial septum grossly appears intact with no obvious evidence for an atrial septal defect. Mitral Valve: The mitral valve is grossly normal. MAC. There is no mitral valve stenosis. There is mild mitral regurgitation. Aortic Valve: 29mm Evolut FX TAVR visualized. The peak aortic velocity is 2.50 m/sec. The aortic valve mean gradient is 12.2 mmHg. No aortic regurgitation is present. Tricuspid Valve: The tricuspid valve is normal. There is no tricuspid stenosis. There is mild tricuspid regurgitation. The right ventricular systolic pressure is estimated to be at least 28 mmHg based on an estimated right atrial pressure of 3 mm Hg. Pulmonic Valve: The pulmonic valve is not well visualized. There is no pulmonic valvular stenosis. There is a trace or physiologic amount of pulmonic regurgitation. Great Vessels: The aortic root is normal size. The dimensions of the ascending aorta are normal. The IVC is of normal diameter and collapses greater than 50% with a sniff. This suggests a low right atrial pressure of 3 mm Hg. Pericardium/ Pleura There is no pericardial effusion. There is no pleural effusion. MMode/2D Measurements & Calculations LVIDd: 3.3 cm LVOT diam: 1.7 cm LVIDs: 2.3 cm Ao root diam: 3.2 cm FS: 32.1 % asc Aorta Diam: 3.5 cm IVSd: 1.2 cm Ao Arch Diam (Prox Trans): 2.9 cm LVPWd: 1.2 cm LV mckenzie. diameter/BSA (cm/m^2): 1.8 LV sys. diameter/BSA (cm/m^2): 1.2 LA A2 area: 26.0 cm2 RA long axis: 4.8 cm LA A4 area: 19.5 cm2 RA area: 15.7 cm2 LA length (vol): 5.3 cm RA vol: 44.1 ml LA vol: 81.7 ml RA : 24.4 ml/m2 LA vol index: 45.2 ml/m2 IVC diam: 1.8 cm RVD1 (basal): 5.2 cm RVD2 (mid): 4.4 cm TAPSE: 2.5 cm Doppler Measurements & Calculations Ao V2 max: 250.4 cm/sec LVOT Max George: 163.0 cm/sec Ao V2 mean: 157.6 cm/sec LV V1 max P.6 mmHg Ao max P.1 mmHg LV V1 VTI: 31.8 cm Ao mean P.2 mmHg HOANG(I,D): 1.6 cm2 Ao V2 VTI: 45.6 cm HOANG(V,D): 1.5 cm2 sev ratio: 0.70 HOANG indexed to BSA (cm^2/m^2): 0.89 MV E max george: 83.4 cm/sec TR max george: 251.9 cm/sec MV A max george: 117.5 cm/sec TR max P.4 mmHg MV E/A: 0.71 PA V2 max: 119.1 cm/sec Med Peak E' George: 5.6 cm/sec PA V2 mean: 75.7 cm/sec E/E' med: 14.9 PA mean P.9 mmHg Lat Peak E' George: 9.9 cm/sec PA pr(Accel): 25.9 mmHg E/E' lat: 8.4 E/e' average: 11.7 MV dec time: 0.33 sec SV(LINDA): 73.0 ml Electronically signed by: Maria E wakefield Reading Physician:10/13/2023 06:06 AM
== END ==
PROVIDERS: PCP Family Medicine; Referring Provider Registered Nurse; Visit Provider Registered Nurse
DX: I08.1 Rheumatic disorders of both mitral and tricuspid valves (principal)
CPT/HCPCS: 93306

== ENCOUNTER → 2024-03-07 13:22 | Outpatient (CLI) | payer OTHER, SELFPAY ==
[2024-03-07 18:41] LABS: Add Manual Diff / Slide Review NO; Basophils Absolute Auto 0 /uL (0-100); Basophils Percent Auto 0.4 % (0-2); Eosinophils Absolute Auto 0 /uL (0-450); Eosinophils Percent Auto 0.5 % (2-4); Hemoglobin 14.5 g/dL (13.5-17.5); Lymphocytes Absolute Auto 1000 /uL (1100-4500); Mean Corpuscular HGB Conc 32.3 % (30-36); Mean Corpuscular Hemoglobin 28.7 PG (26-34); Mean Corpuscular Volume 88.9 fL (80-100); Monocytes Absolute Auto 400 /uL (0-900); Monocytes Percent Auto 6.2 % (3-14); Neutrophils Absolute Auto 5200 /uL (1500-7000); Neutrophils Percent Auto 77.9 % (50-75); Platelet Count 221 X10^3/uL (150-400); Red Blood Cell Count 5.06 X10^6/uL (4.5-5.9); Red Cell Distribution Width 15.9 % (11.6-14.8); White Blood Cell Count 6.7 X10^3/uL (4.5-11.0)
[2024-03-07 19:37] LABS: High Sensitivity CRP - Cardiac 1.9 mg/L (1.0-3.0)
== END ==
PROVIDERS: PCP Family Medicine; Visit Provider Family Medicine
DX: R13.14 Dysphagia, pharyngoesophageal phase (principal)
CPT/HCPCS: 85025; 86140

== ENCOUNTER → 2024-09-11 12:25 | Outpatient (CLI) | payer MEDICARE, SELFPAY ==
--- NOTE | 2024-09-11 12:28 | DI.ECHO.S_ITS ---
[facility] : : [id number] : : [address] : : [id number] : : Phone: [phone] Echocardiogram Report + + :Name: TIERNEY DAVEY Study Date: 09/11/2024 Height: 68 in : :Hospital ReadingLocation: Weight: 145 lb : : Gender: Male BSA: 1.8 m2 : :: 1945 Age: 79 yrs BP: 130/68 mmHg: :Reason For Study: POST TAVR : :Ordering Physician: TERE, : :ALFREDO Performed By: Parker Torres : :Referring: [email or web address] : + + Interpretation Summary The ejection fraction is estimated to be 60-65%. Diastolic parameters suggest probable normal left ventricular diastolic function and normal filling pressures. The right ventricle is mild to moderately dilated. The right ventricular systolic function is normal. There is a well-seated bioprosthetic aortic valve with increased gradient; EOA 1.32 cm2, indexed EOA 0.73 cm2/m2. Pulmonary artery pressures cannot be estimated because of the lack of a measurable TR jet velocity but the IVC suggests a CVP of around 3 mmHg. Compared to the prior study 10/12/2023, the aortic valve gradient has increased. Procedure: A two-dimensional transthoracic echocardiogram with color flow and Doppler was performed. The study quality was technically good. Comparison is made with the echocardiogram of 10/12/2023. The patient was in normal sinus rhythm during the exam. Left Ventricle: The left ventricle is normal in size. There is normal left ventricular wall thickness. There is no ventricular septal defect visualized. The ejection fraction is estimated to be 60-65%. There are no focal wall motion abnormalities. Diastolic parameters suggest probable normal left ventricular diastolic function and normal filling pressures. Right Ventricle: The right ventricle is mild to moderately dilated. The right ventricular systolic function is normal. Atria: The left atrial size is normal. Right atrial size is normal. There is no Doppler evidence for an interatrial shunt. Mitral Valve: There is moderate mitral annular calcification. The mitral valve leaflets are slightly calcified. There is trace mitral regurgitation. Aortic Valve: There is a bioprosthetic aortic valve. 29mm Evolut FX TAVR. The peak aortic velocity is 3.1 m/sec. The aortic valve mean gradient is 22 mmHg. No aortic regurgitation is present. Tricuspid Valve: The tricuspid valve leaflets are thin and pliable. There is a trace or physiologic amount of tricuspid regurgitation. Pulmonary artery pressures cannot be estimated because of the lack of a measurable TR jet velocity but the IVC suggests a CVP of around 3 mmHg. Pulmonic Valve: The pulmonic valve leaflets are thin and pliable; valve motion is normal. There is no pulmonic valvular regurgitation. Great Vessels: The dimensions of the ascending aorta are normal. The pulmonary artery is not well visualized, but is probably normal size. The IVC is of normal diameter and collapses greater than 50% with a sniff. This suggests a low right atrial pressure of 3 mm Hg. Pericardium/ Pleura There is no pericardial effusion. There is no pleural effusion. MMode/2D Measurements & Calculations LVIDd: 4.4 cm LVOT diam: 1.8 cm LVIDs: 2.4 cm asc Aorta Diam: 3.7 cm FS: 44.5 % EPSS: 0.77 cm IVSd: 1.0 cm LVPWd: 1.0 cm LV mckenzie. diameter/BSA (cm/m^2): 2.5 LV sys. diameter/BSA (cm/m^2): 1.4 LA A2 area: 17.4 cm2 RA long axis: 3.9 cm LA A4 area: 15.2 cm2 RA area: 11.5 cm2 LA length (vol): 4.8 cm RA vol: 28.9 ml LA vol: 47.0 ml RA : 16.2 ml/m2 LA vol index: 26.4 ml/m2 IVC diam: 1.3 cm RVD1 (basal): 4.6 cm RVD2 (mid): 3.2 cm TAPSE: 2.3 cm Doppler Measurements & Calculations Ao V2 max: 311.0 cm/sec LVOT Max George: 145.1 cm/sec Ao V2 mean: 235.9 cm/sec LV V1 max P.4 mmHg Ao max P.7 mmHg LV V1 VTI: 28.8 cm Ao mean P.4 mmHg HOANG(I,D): 1.2 cm2 Ao V2 VTI: 57.8 cm HOANG(V,D): 1.1 cm2 sev ratio: 0.50 HOANG indexed to BSA (cm^2/m^2): 0.69 MV E max george: 74.3 cm/sec PA V2 max: 88.9 cm/sec MV A max george: 129.0 cm/sec PA V2 mean: 66.2 cm/sec MV E/A: 0.58 PA mean P.9 mmHg Med Peak E' George: 7.6 cm/sec PA pr(Accel): 29.3 mmHg E/E' med: 9.8 Lat Peak E' George: 9.6 cm/sec E/E' lat: 7.7 E/e' average: 8.8 MV dec time: 0.25 sec SV(OT): 71.0 ml Reading Physician:02:21 PM
== END ==
LOC: ECHO 12:27
PROVIDERS: PCP Family Medicine
DX: I34.81 Nonrheumatic mitral (valve) annulus calcification (principal); Z95.2 Presence of prosthetic heart valve
CPT/HCPCS: 93306

== ENCOUNTER → 2025-03-10 09:57 | Outpatient (CLI) | payer MEDICARE, SELFPAY ==
[2025-03-10 18:51] LABS: Hematocrit 49.8 % (41-53); Hemoglobin 16.9 g/dL (13.5-17.5); Mean Corpuscular HGB Conc 33.8 % (30-36); Mean Corpuscular Hemoglobin 30.6 PG (26-34); Mean Corpuscular Volume 90.4 fL (80-100); Platelet Count 162 X10^3/uL (150-400)
[2025-03-10 18:54] LABS: Add Manual Diff / Slide Review YES
[2025-03-10 19:06] LABS: Alanine Aminotransferase 78 IU/L (<50); Albumin 4.4 g/dL (3.5-5.0); Albumin Globulin Ratio 1.4 (1.0-2.8); Alkaline Phosphatase 60 U/L (38-126); Blood Urea Nitrogen 18 mg/dL (9-20); Calcium 9.3 mg/dL (8.4-10.2); Carbon Dioxide 28 mmol/L (22-32); Chloride 102 mmol/L (98-107); Cholesterol 248 mg/dL (140-199); Estimated Glomerular Filt Rate > 60 mL/min (>60); Globulin 3.2 g/dL (1.7-4.1); Glucose 100 mg/dL (70-99); HDL Cholesterol 73 mg/dL (40-60); HEMOLYSIS 27 (0-50); Potassium 4.5 mmol/L (3.4-5.1); Sodium 137 mmol/L (137-145); Total Protein 7.6 g/dL (6.3-8.2); Triglycerides 75 mg/dL (35-150)
[2025-03-10 19:13] LABS: Band Neutrophils Percent 4.0 % (3-7); Eosinophils Percent Manual 2.0 % (2-4); Lymphocytes Percent Manual 20.0 % (25-45); Monocytes Percent Manual 9.0 % (2-11); Neutrophils Absolute Manual 4761 /uL (3000-5900); RBC Morphology Normal Morphology; Segmented Neutrophils Percent 65.0 % (38-70); Total Cells Counted 100
== END ==
PROVIDERS: PCP Family Medicine; Visit Provider Physician Assistant
DX: Z13.6 Encounter for screening for cardiovascular disorders (principal); Z79.899 Other long term (current) drug therapy
CPT/HCPCS: 80053; 80061; 85007; 85025